=== PATIENT | female | born 1950 | race Caucasian/White ===

== ENCOUNTER → 2021-12-05 | Outpatient (CLI) | payer MEDICARE | LOC: KOH-I 10:58 | DX: Z87.891 Personal history of nicotine dependence (principal) | CPT/HCPCS: 71271 ==

== ENCOUNTER → 2022-05-26 | Outpatient (CLI) | payer MEDICARE | LOC: ECHO 05-23 10:45 | DX: R60.0 Localized edema (principal) | CPT/HCPCS: ECHO; 93306 ==